=== PATIENT | female | born 1940 | race Caucasian/White ===

== ENCOUNTER 2020-12-13 08:28 | Outpatient (CLI) | payer MEDICARE, SELFPAY ==
--- NOTE | ~2020-12-13 | XR_ITS ---
EXAMINATION: XR barium swallow modified DATE: 12/13/2020 09:29 INDICATION: Dysphagia, unspecified TECHNIQUE: Modified barium esophagram was performed by myself to administered fluoroscopy, in conjun ction with speech pathologist who administered barium in varying consistencies as per speech patholog ist documentation. This was recorded on tape. A single fluoroscopic spot image was recorded. The DAP for this procedure was 1.6 Gycm2. Fluoroscopy exposure time was 2.6 minutes. FINDINGS: Oral stage: Adequate function. Pharyngeal phase: Adequate function. Laryngeal penetration: None. Aspiration: None. Laryngeal sensitivity: Present. Of note, reflux was seen at the lower margin of the visualized upper esophagus at several points thro ughout the examination. IMPRESSION: 1. Unremarkable swallowing function. Please refer to speech pathologist findings and specific feeding recommendations. 2. Esophageal reflux noted at several points during the examination. Consider further evaluation with upper GI. Reviewed, dictated and finalized at location A. IMPRESSION: 1. Unremarkable swallowing function. Please refer to speech pathologist finding s and specific feeding recommendations. 2. Esophageal reflux noted at several points during the examination. Consider f urther evaluation with upper GI.
--- NOTE | 2020-12-13 10:04 | STOPEVAL ---
MODIFIED BARIUM SWALLOW EVALUATION: Thank you for referring Annabelle Gruber to [facility].? Attending Provider: Blas Briscoe MD fAX #: [phone] Referring Provider: Outpatient Past Medical History Past Medical History Source of Past Medical History Patient,Family/Significant Other Prior Level of Function Prior Swallow Level Prior Intake Method Oral Prior Diet Regular (Level 7 Diet) Prior Liquid Consistency Thin (Level 0 Diet) Modified Barium Swallow Evaluation Recent Swallowing History Reports Dysphagia Yes: choking with eating Duration of Dysphagia 4-6 months Other Factors Impacting Dysphagia None History of Pneumonia No Reported Difficult Consistencies Thin Liquids,Solids Intake Method Prior to Swallow Oral Evaluation Diet Prior to Swallow Evaluation Regular, Level 7 Liquid Consistency Prior to Swallow Thin (0) Evaluation Consistency Solid Consistency Method of Presentation Spoon Oral Preparatory Symptoms None Oral Phase Symptoms None Pharyngeal Phase Symptoms Within Functional Limits, Laryngeal Penetration Severity of Vallecular Residue None - 0% No Residue Severity of Pyriform Sinus Residue None - 0% No Residue 8 Point Laryngeal Penetration-Aspiration Material Enters the Airway, Scale Remains Above Vocal Folds, is Ejected Mixed Consistency Method of Presentation Spoon Oral Preparatory Symptoms None Oral Phase Symptoms None Pharyngeal Phase Symptoms None Severity of Vallecular Residue None - 0% No Residue Severity of Pyriform Sinus Residue None - 0% No Residue 8 Point Laryngeal Penetration-Aspiration Material Does Not Enter Airway Scale Cervical/Esophageal Symptoms Esophageal/Pharyngeal Backflow Pureed Consistency Method of Presentation Spoon Oral Preparatory Symptoms None Oral Phase Symptoms None Pharyngeal Phase Symptoms None Severity of Vallecular Residue None - 0% No Residue Severity of Pyriform Sinus Residue None - 0% No Residue 8 Point Laryngeal Penetration-Aspiration Material Does Not Enter Airway Scale Thin Uncontrolled 2 Method of Presentation Straw Oral Preparatory Symptoms None Oral Phase Symptoms None Pharyngeal Phase Symptoms None Severity of Vallecular Residue None - 0% No Residue Severity of Pyriform Sinus Residue None - 0% No Residue 8 Point Laryngeal Penetration-Aspiration Material Does Not Enter Airway Scale Cervical/Esophageal Symptoms Esophageal/Pharyngeal Backflow Thin Uncontrolled 1 Method of Presentation Cup Oral Preparatory Symptoms None Oral Phase Symptoms None Pharyngeal Phase Symptoms None Sever
== END 2020-12-13 08:29 | disposition home or self-care (01) ==
PROVIDERS: PCP Family Medicine; Visit Provider Otolaryngology
DX: R13.10 Dysphagia, unspecified (principal)
CPT/HCPCS: 92611

== ENCOUNTER → 2021-01-15 00:12 | Outpatient (CLI) | payer MEDICARE, SELFPAY ==
[2021-01-15 17:12] LABS: SARS-CoV-2 RNA PCR Negative
== END ==
PROVIDERS: PCP Family Medicine; Visit Provider Internal Medicine Gastroenterology
DX: Z01.812 Encounter for preprocedural laboratory examination (principal); Z20.822 Contact with and (suspected) exposure to COVID-19
CPT/HCPCS: C9803; U0003; U0005

== ENCOUNTER 2021-01-18 01:41 | Day surgery (SDC) | payer MEDICARE, SELFPAY ==
[2021-01-11 13:39] VITALS: BMI 50.7
--- NOTE | 2021-01-18 07:07 | PM.HPGS ---
History of Present Illness History of Present Illness Consent: Risks, benefits, and alternatives have been discussed and questions answered. Patient agrees to proceed with procedure. Chief complaint: dysphagia Narrative: Annabelle Gruber is a 80 year old female with increasing dysphagia. This began a few years ago with intermittent difficulty swallowing solid food. She has learned to chew her food more thoroughly. Lately however even smaller bites or even liquids do not seem to go down. Most the time it feels like things are getting caught in the throat . At times she can expect trait what seems to be caught. She has had larygoscopy and a modified barium swallow which did not reveal any obvious explanation she is on omeprazole. There has been about a 20 lb weight loss Review of Systems Review of Systems: All systems reviewed & are unremarkable except as noted in HPI and below PMFSH Past Medical History Medical History Abdominal pannus Adult BMI 45.0-49.9 kg/sq m Bilateral knee pain Bilateral primary osteoarthritis of knee Chronic congestive heart failure Depression Encounter for screening colonoscopy Essential hypertension Heart murmur Hyperglycemia Hypertension Hypothyroidism Laceration of right thumb Lymphedema Mixed hyperlipidemia Nonrheumatic aortic (valve) stenosis Obesity On warfarin therapy Paroxysmal atrial fibrillation Pulmonary hypertension Tricuspid regurgitation Venous stasis ulcer of right lower extremity Vitamin D deficiency Surgical History Surgical History History of cholecystectomy History of gastric bypass History of gastric stapling Family History Family History Father Diabetes mellitus Hypertension Mother Hypertension Heart disease Cerebrovascular accident Sibling Cancer Other Asthma Hypertension Other Family history of coronary artery disease Social History Social History Smoking status: Never smoker Second hand tobacco smoke exposure: No Alcohol intake: never Substance use: never Substance use type: does not use Living arrangements: alone Spiritual care concerns: No Meds Home Medications and Allergies Home Medications Medication Instructions Recorded Confirmed Type levothyroxine 88 mcg tablet 88 mcg PO DAILY #90 tablet 08/08/20 01/11/21 Rx metoprolol tartrate 100 mg tablet 100 mg PO BID #180 tablet 08/08/20 01/11/21 Rx donepezil 5 mg tablet 5 mg PO QHS 01/01/21 01/11/21 History furosemide 20 mg PO QAM 01/11/21 01/11/21 History potassium chloride 10 meq PO DAILY 01/11/21 01/11/21 History warfarin 4 mg PO QMWF 01/11/21 01/11/21 History warfarin 5 mg PO QTUTHSASU 01/11/21 01/11/21 History digoxin 125 mcg (0.125 mg) tablet 125 mcg PO DAILY #90 tablet 01/15/21 Rx losartan 100 mg tablet 100 mg PO DAILY #90 tablet 01/15/21 Rx Allergies Allergy/AdvReac Type Severity Reaction Status Date / Time alendronate sodium Allergy Unknown unknown Verified 01/18/21 07:11 Exam Const: General: alert Orientation/consciousness: patient oriented x3 Resp: Auscultation: clear to auscultation bilaterally Cardio: Rhythm: regular rhythm GI: GI Palp: Yes Soft to palpation and No Tenderness to palpation present (GI) Neuro: General: patient oriented x3 Assessment and Plan Assessment and plan (1) Dysphagia: Code(s): R13.10 - Dysphagia, unspecified Status: Acute Assessment and Plan: EGD with possible biopsy or dilatation or cautery.
[2021-01-18 07:12] VITALS: BP 175/61; PULSE 68; RESP 20; TEMP 35.9; O2SAT 98
[2021-01-18] MEDS: LACTATED RINGERS 1,000 ML 150 ML IV CONT (07:27)
--- NOTE | 2021-01-18 07:46 | WPDANESEPPF ---
Anes - Initial Pre Proc Eval Procedure: Operation Date: 01/18/21 08:00 Proposed Procedures p Esophagogastroduodenoscopy - Juancarlos Olivares MD Date/Time: 01/18/21 07:46 Surgeon: Juancarlos Olivares MD Pre Op Diagnosis: dysphagia Patient Data Age: 80 Gender: F Height: 1.5 m Weight: 98 kg Last Vital Signs Temp 96.6 F L 01/18/21 07:12 Pulse 68 01/18/21 07:12 Resp 20 01/18/21 07:12 BP 175/61 H 01/18/21 07:12 Pulse Ox 98 01/18/21 07:12 Allergies Allergy/AdvReac Type Severity Reaction Status Date / Time alendronate sodium Allergy Unknown unknown Verified 01/18/21 07:11 Home Medications Medication Instructions Recorded Confirmed Type levothyroxine 88 mcg tablet 88 mcg PO DAILY #90 tablet 08/08/20 01/18/21 Rx metoprolol tartrate 100 mg tablet 100 mg PO BID #180 tablet 08/08/20 01/18/21 Rx donepezil 5 mg tablet 5 mg PO QHS 01/01/21 01/18/21 History furosemide 20 mg PO QAM 01/11/21 01/18/21 History potassium chloride 10 meq PO DAILY 01/11/21 01/18/21 History warfarin 4 mg PO QMWF 01/11/21 01/18/21 History warfarin 5 mg PO QTUTHSASU 01/11/21 01/18/21 History digoxin 125 mcg (0.125 mg) tablet 125 mcg PO DAILY #90 tablet 01/15/21 01/18/21 Rx losartan 100 mg tablet 100 mg PO DAILY #90 tablet 01/15/21 01/18/21 Rx Patient hx anesthesia problems: none Family hx anesthesia problems: none PMFSH Past Medical History Medical History Abdominal pannus Adult BMI 45.0-49.9 kg/sq m Bilateral knee pain Bilateral primary osteoarthritis of knee Chronic congestive heart failure Depression Encounter for screening colonoscopy Essential hypertension Heart murmur Hyperglycemia Hypertension Hypothyroidism Laceration of right thumb Lymphedema Mixed hyperlipidemia Nonrheumatic aortic (valve) stenosis Obesity On warfarin therapy Paroxysmal atrial fibrillation Pulmonary hypertension Tricuspid regurgitation Venous stasis ulcer of right lower extremity Vitamin D deficiency Surgical History Surgical History History of cholecystectomy History of gastric bypass History of gastric stapling Family History Family History Father Diabetes mellitus Hypertension Mother Hypertension Heart disease Cerebrovascular accident Sibling Cancer Other Asthma Hypertension Other Family history of coronary artery disease Social History Social History Smoking status: Never smoker Second hand tobacco smoke exposure: No Alcohol intake: never Substance use: never Substance use type: does not use Living arrangements: alone Spiritual care concerns: No Anes - Eval Final PreProcedure Day of Procedure 01/18/21 07:46 Patient weight: morbidly obese Heart: irregular rhythm and murmur Lungs: clear to auscultation Airway: Mallampati scale class II Neurological: alert and oriented Last oral intake: >/= 8 hours ASA classification: IV Emergent: no Anesthetic plan: proceed Anesthesia type and monitoring: general GIVS and standard monitoring Informed Consent: The patient's anesthetic plan and its attendant risks and benefits were discussed with the patient/family/POA. Questions were solicited and answers provided to the satisfaction of the patient/family/POA.
[2021-01-18 08:11] VITALS: BP 139/53; PULSE 57; RESP 23; O2SAT 96
[2021-01-18 08:21] VITALS: BP 138/60; PULSE 66; RESP 20; O2SAT 96
[2021-01-18 08:31] VITALS: BP 140/62; PULSE 65; RESP 20; O2SAT 96
== END 2021-01-18 08:59 | disposition home or self-care (01) ==
PROVIDERS: PCP Family Medicine; Visit Provider Internal Medicine Gastroenterology
PROC: 0DJ08ZZ Inspection of Upper Intestinal Tract, Via Natural or Artificial Opening Endoscopic (ICD-10-PCS; CPT 43235; principal; 2021-01-18 08:00)
DX: R13.10 Dysphagia, unspecified (principal); K21.9 Gastro-esophageal reflux disease without esophagitis; K29.70 Gastritis, unspecified, without bleeding; Z98.84 Bariatric surgery status; K22.4 Dyskinesia of esophagus; I11.0 Hypertensive heart disease with heart failure; I50.9 Heart failure, unspecified; E03.9 Hypothyroidism, unspecified; E78.2 Mixed hyperlipidemia; I35.0 Nonrheumatic aortic (valve) stenosis; I48.0 Paroxysmal atrial fibrillation; I36.1 Nonrheumatic tricuspid (valve) insufficiency; E55.9 Vitamin D deficiency, unspecified; Z79.01 Long term (current) use of anticoagulants; E66.01 Morbid (severe) obesity due to excess calories; Z68.41 Body mass index [BMI] 40.0-44.9, adult
CPT/HCPCS: 43239; 43450; 87081; 88305; C9803; J2704; J7120; U0003; U0005

== ENCOUNTER → 2022-06-07 10:26 | Outpatient (CLI) | payer MEDICARE, SELFPAY ==
--- NOTE | ~2022-06-07 | XR_ITS ---
XR foot LT min 3V 06/07/2022 10:52 Indication: Left foot pain Procedure: 4 views left foot Comparison: No prior studies for comparison. Findings: Osteopenia. There is atherosclerosis of the foot. Lisfranc Joint intact. There is moderate polyarticular osteoarthritis. No erosive changes. There is a possible nondisplaced fracture of the f ifth proximal phalanx on the oblique image. Prominent degenerative calcaneal enthesophytes. No focal soft tissue abnormality. No foreign bodies. Impression: 1: Possible nondisplaced fracture left fifth proximal phalanx distally seen on oblique image only. Co rrelate for point tenderness. 2: Polyarticular osteoarthritis. Reviewed, dictated and finalized at location B. [employer] Impression: 1: Possible nondisplaced fracture left fifth proximal phalanx distally seen on oblique image only. Correlate for point tenderness. 2: Polyarticular osteoarthritis.
== END ==
PROVIDERS: PCP Family Medicine; Visit Provider Family Medicine
DX: M19.072 Primary osteoarthritis, left ankle and foot (principal)
CPT/HCPCS: 73630

== ENCOUNTER 2023-05-06 11:18 | Observation (INO) | payer MEDICARE, SELFPAY ==
--- NOTE | ~2023-05-06 | XR_ITS ---
EXAMINATION: XR hand LT min 3V DATE: 05/06/2023 18:22 INDICATION: Left hand injury. Fall. TECHNIQUE: 3 views of left hand were obtained. COMPARISON: None. FINDINGS: Bone alignment is normal. No fracture. There is mild osteoarthritis of triscaphe joint and severe osteoarthritis of first carpometacarpal joint. There is moderate osteoarthritis of second meta carpophalangeal joint. There is mild osteoarthrosis of many of the interphalangeal joints and metacar pophalangeal joints. There is severe osteoarthritis of second-fifth distal interphalangeal joints and moderate osteoarthritis of third proximal interphalangeal joint. IMPRESSION: 1. No fracture. 2. Polyarticular osteoarthritis. Reviewed, dictated and finalized at location E.
--- NOTE | ~2023-05-06 | CT_ITS ---
EXAMINATION: CT brain wo con DATE: 05/06/2023 18:13 INDICATION: Weakness. Falls. Confusion. TECHNIQUE: Computed tomography (CT) of the head was performed without intravenous contrast. The mA wa s adjusted according to patient size. Iterative reconstruction technique was employed. The dose-lengt h product was 605.33 mGy-cm. COMPARISON: None FINDINGS: There is an old infarct in the right basal ganglia. There are scattered areas of low attenu ation in the cerebral white matter. There is no intracranial hemorrhage, acute infarction, or abnorma l intracranial mass lesion. The ventricles are normal in size. The orbits are normal. There is a trac e right mastoid effusion. There is mild mucosal thickening in the ethmoid sinuses. IMPRESSION: 1. Old infarct in the right basal ganglia. 2. Moderate nonspecific cerebral white matter disease, which likely represents chronic small vessel i schemic disease. Reviewed, dictated and finalized at location E. IMPRESSION: 1. Old infarct in the right basal ganglia. 2. Moderate nonspecific cerebral white matter disease, which likely represents chronic small vessel ischemic disease.
--- NOTE | ~2023-05-06 | CT_ITS ---
EXAMINATION: CT abdomen pelvis w con DATE: 05/06/2023 18:15 INDICATION: Left lower quadrant abdominal tenderness and suprapubic tenderness. TECHNIQUE: Computed tomography (CT) of the abdomen and pelvis was performed with 100 mL Omnipaque 350 intravenous contrast. Automated exposure control and iterative reconstruction technique were employe d. The dose-length product was 746.62 mGy-cm. COMPARISON: None. FINDINGS: The visualized portions of the lung bases demonstrate mild atelectasis. No pleural effusion . Cardiomegaly is noted. There are coronary artery calcifications. There are calcifications of the ao rtic valve. There is a trace pericardial effusion. There is material in the esophagus, which may be f rom reflux or dysmotility. There are surgical changes of the stomach. The liver and spleen are normal . There are changes of cholecystectomy. The pancreas and adrenal glands are normal. There are cysts i n right kidney measuring up to 7 mm. Left kidney is normal. There is a left inguinal hernia containin g fat. There are no dilated loops of bowel. There is calcified atherosclerosis of the aorta and many of the other arteries. There are no pathologically enlarged lymph nodes. The endometrial complex is t hickened to 8 mm. There is no free intraperitoneal fluid. There is severe lumbar spondylosis. IMPRESSION: 1. Left inguinal hernia containing fat. 2. Thickened endometrial complex. The differential diagnosis includes endometrial hyperplasia, polyp, and carcinoma. Biopsy is recommended. Reviewed, dictated and finalized at location E. IMPRESSION: 1. Left inguinal hernia containing fat. 2. Thickened endometrial complex. The differential diagnosis includes endometri al hyperplasia, polyp, and carcinoma. Biopsy is recommended.
--- NOTE | ~2023-05-06 | XR_ITS ---
EXAMINATION: XR forearm LT 2V DATE: 05/06/2023 18:22 INDICATION: Left forearm injury. Fall. TECHNIQUE: 2 views of left forearm were obtained. COMPARISON: None. FINDINGS: Bone alignment is normal. No fracture. There is mild osteoarthritis of triscaphe joint and severe osteoarthritis of first carpometacarpal joint. No elbow joint effusion. IMPRESSION: 1. No fracture. Reviewed, dictated and finalized at location E. IMPRESSION: 1. No fracture.
--- NOTE | ~2023-05-06 | CT_ITS ---
EXAMINATION: CT cervical spine wo con DATE: 05/06/2023 18:13 INDICATION: Weakness. Falls. TECHNIQUE: Computed tomography (CT) of the cervical spine was performed without intravenous contrast. Automated exposure control and iterative reconstruction technique were employed. The dose-length pro duct was 123.86 mGy-cm. COMPARISON: None FINDINGS: Bone alignment is normal. Vertebral body heights are normal. There is mildly decreased disc height from C2-C3 through C4-C5 and severely decreased disc height at C5-C6 and C6-C7. The following disc levels are specifically discussed: C2-C3: There is no uncovertebral joint osteoarthritis. There is mild right facet joint osteoarthritis . There is ankylosis of left facet joint with mild hypertrophy. There is no neural foraminal stenosis . There is no central canal stenosis. C3-C4: There is no uncovertebral joint osteoarthritis. There is severe bilateral facet joint osteoart hritis. There is no neural foraminal stenosis. There is mild central canal stenosis. C4-C5: There is mild bilateral uncovertebral joint osteoarthritis. There is severe right and mild lef t facet joint osteoarthritis. There is mild right neural foraminal stenosis. There is mild central ca nal stenosis. C5-C6: There is moderate bilateral uncovertebral joint osteoarthritis. There is severe bilateral face t joint osteoarthritis. There is mild bilateral neural foraminal stenosis. There is mild central lona l stenosis. C6-C7: There is mild bilateral uncovertebral joint osteoarthritis. There is moderate bilateral facet joint osteoarthritis. There is no neural foraminal stenosis. There is mild central canal stenosis. C7-T1: There is no uncovertebral joint osteoarthritis. There is severe bilateral facet joint osteoart hritis. There is mild bilateral neural foraminal stenosis. There is no central canal stenosis. IMPRESSION: 1. No fracture. 2. Severe cervical spondylosis. Reviewed, dictated and finalized at location E.
--- NOTE | ~2023-05-06 | XR_ITS ---
Clinical Indication: Weakness AP and lateral views of the chest: Comparison: 07/06/2017 Findings: The lungs are clear, without evidence of focal consolidation or pleural effusion. Cardiome diastinal silhouette is stable. Relative kyphosis is unchanged. Impression: Clear lungs. Stable cardiomegaly. Kyphosis. Reviewed, dictated and finalized at location . Impression: Clear lungs. Stable cardiomegaly. Kyphosis.
[2023-05-06 11:32] VITALS: BP 158/70; PULSE 68; RESP 16; TEMP 36.3; O2SAT 100
--- NOTE | 2023-05-06 11:34 | ECG_ITS ---
Measurements Intervals [place] Rate: 104 P: [place]: 0 QRS: 10 QRSD: 80 T: 1 QT: 333 QTc: 439 Interpretive Statements ATRIAL FIBRILLATION WITH RAPID VENTRICULAR RESPONSE BASELINE ARTIFACT MINIMAL ST DEPRESSION [0.025+ mV ST DEPRESSION] ABNORMAL ECG NO PREVIOUS ECG AVAILABLE FOR COMPARISON Electronically Signed On 05-06-2023 18:31:03 CDT by Vishnu Ruffin M.D.
[2023-05-06 11:53] LABS: Basophils Percent Auto 0.3 % (0.2-1.2); Eosinophils Absolute Auto 0.1 K/mm3 (0-0.3); Eosinophils Percent Auto 1.1 % (0-4.4); Hematocrit 39.5 % (37.0-47.0); Hemoglobin 12.9 g/dL (12.0-15.0); Immature Granulocyte Absolute 0.01 K/mm3 (0.00-0.031); Immature Granulocyte Percent A 0.2 % (0-0.5); Lymphocytes Absolute Auto 1.18 K/mm3 (0.9-3.2); Lymphocytes Percent Auto 17.7 % (18.3-44.2); Mean Corpuscular HGB Conc 32.7 g/dl (32-36); Mean Corpuscular Hemoglobin 33.7 pg (26-34); Mean Corpuscular Volume 103.1 fl (80-100); Monocytes Absolute Auto 0.9 K/mm3 (0.1-0.6); Monocytes Percent Auto 12.9 % (2.6-8.5); Neutrophils Absolute Auto 4.5 K/mm3 (1.3-6.7); Neutrophils Percent Auto 67.8 % (45.5-73.1); Platelet Count Result 192 k/mm3 (150-375); Red Blood Count 3.83 M/mm3 (4.2-5.4); Red Cell Distribution Width 12.8 % (11.5-14.5); White Blood Count 6.7 K/mm3 (4.5-10.0)
[2023-05-06 12:02] LABS: Alanine Aminotransferase 19 U/L (6-35); Albumin Level 4.1 g/dL (3.5-5.1); Alkaline Phosphatase 57 U/L (38-126); Anion Gap 7 mmol/L (8-16); Aspartate Amino Transferase 35 U/L (14-36); Bilirubin,Total 1.8 mg/dL (0.2-1.3); Blood Urea Nitrogen 18 mg/dL (7-17); Calcium 9.3 mg/dL (8.4-10.2); Carbon Dioxide 25 mmol/L (22-30); Chloride 105 mmol/L (98-107); Estimated CRCL calculation 68 ml/min; Estimated Glomerular Filt Rate > 60; Glucose 85 mg/dL (65-110); Potassium 3.6 mmol/L (3.4-5.0); Sodium 137 mmol/L (137-145)
--- NOTE | 2023-05-06 16:30 | ED.WEAKNESS ---
HPI - Weakness General Chief complaint: Weakness Stated complaint: falls x2, confused, SOB Time Seen by Provider: 05/06/23 15:36 History of Present Illness HPI Narrative: Patient is an 82-year-old female with a history of dementia, CHF, hypothyroidism, hypertension presenting after multiple falls. Patient's daughters are at bedside and assists with the history. Patient lives at home alone. She was found on the floor 2 days ago by her daughter. Unclear how long she had been down or the cause of her fall. Patient then had another fall yesterday. She was found right by her recliner and she was unable to get up. Family states that she often struggles to get herself up but is usually able to do so on her own. They are concerned because she is so weak. Concerned that she may have a UTI. Patient currently denies complaints. Related Data Allergies Allergy/AdvReac Type Severity Reaction Status Date / Time alendronate sodium Allergy Unknown unknown Verified 06/06/22 08:55 Review of Systems Review of Systems: All systems reviewed & are unremarkable except as noted in HPI and below PMFSH Past Medical History Medical History Abdominal pannus Adult BMI 45.0-49.9 kg/sq m Bilateral knee pain Bilateral primary osteoarthritis of knee Body mass index (BMI) of 30 to 39 in adult Chronic congestive heart failure Chronic renal insufficiency, stage III (moderate) Dementia Depression Encounter for immunization Encounter for screening colonoscopy Essential hypertension Heart murmur Hyperglycemia Hypertension Hypothyroidism Laceration of right thumb Lymphedema Mixed hyperlipidemia Nonrheumatic aortic (valve) stenosis Obesity On warfarin therapy Paroxysmal atrial fibrillation Pulmonary hypertension Thrombocytopenia Tricuspid regurgitation Venous stasis ulcer of right lower extremity Vitamin D deficiency Surgical History Surgical History History of cholecystectomy History of gastric bypass History of gastric stapling Family History Family History Father Diabetes mellitus Hypertension Mother Hypertension Heart disease Cerebrovascular accident Sibling Cancer Other Asthma Hypertension Other Family history of coronary artery disease Social History Social History Smoking status: Never smoker Second hand tobacco smoke exposure: No Alcohol intake: never Substance use: never Substance use type: does not use Lack of Transportation: No Lack of Food: Never True Current Housing: I Have Housing Concerned About Future Housing: No Difficulty Paying Gas/Electric Bills: No Difficulty Paying for Meds: No Currently Unemployed: No Education: Grade School Difficulty w/ Childcare or Family Care: No Living arrangements: with family Gender identity (if verbalized by the patient): Female Spiritual care concerns: No Agree to blood products: Yes Exam Narrative: GENERAL: Chronically ill-appearing, nontoxic, no acute distress HEAD: Normocephalic, atraumatic. EYES: PERRLA and EOMI. ENT: Mucous membranes tacky NECK: Supple. CHEST: Clear to auscultation. No respiratory distress. HEART: Regular rate and rhythm ABDOMEN: Soft, tender in left lower quadrant and suprapubic region, no guarding or rebound EXTREMITIES: Normal range of motion. Trace pitting edema bilateral lower extremities SKIN: Warm, dry, skin tear to left forearm with dressing in place NEURO: At baseline PSYCH: Normal mood and affect. Course Vital Signs Vital signs: Vital Signs Temperature 97.3 F L 05/06/23 11:32 Pulse Rate 68 05/06/23 11:32 Respiratory Rate 16 05/06/23 11:32 Blood Pressure 158/70 H 05/06/23 11:32 Pulse Oximetry 100 05/06/23 11:32 Oxygen Delivery Room Air 1
[2023-05-06 16:44] LABS: Appearance Urine Cloudy (Clear); Bacteria Urine 1+ /hpf; Bilirubin Urine 2+ (Negative); Blood Urine Negative (Negative); Color Urine Dark Yellow (Yellow); Glucose Urine UA Negative (Negative); Ketones Urine 2+ mg/dL (Negative); Leukocyte Esterase Ur Trace LEU/UL (Negative); Need Manual Microscopic Reviewed; Nitrate Urine Negative (Negative); Non Pathogenic Casts 0-2; Protein Urine Trace mg/dL (Negative); Specific Grav Ur 1.034 (1.001-1.035); Squamous Epithelial Cell Urine Moderate /hpf (Few); WBC Urine 0-5 /hpf
[2023-05-06 16:58] LABS: Add Urine Microscopic? YES
[2023-05-06] MEDS: SODIUM CHLORIDE 0.9% IV 1,000 ML 999 ML IV CONT (17:23)
[2023-05-06 17:35] LABS: INR 1.1; Prothrombin Time 14.2 Seconds (11.1-14.7)
[2023-05-06 17:36] LABS: Partial Thromboplastin Time 33.1 SECONDS (22.3-36.8)
[2023-05-06 17:37] LABS: Creatine Kinase 147 U/L (30-135); Lipase 52 U/L (23-300); Magnesium 1.7 mg/dL (1.6-2.3)
[2023-05-06 17:49] LABS: NT Pro B Type Natriuretic Pept 1490 pg/mL (19.9-100); Troponin I 0.022 ng/mL (0.000-0.034)
[2023-05-06 18:34] LABS: Influenza A QL RT-PCR Negative (Negative); Influenza B QL RT-PCR Negative (Negative); SARS-CoV-2 RNA PCR Negative (Negative)
[2023-05-06 19:24] VITALS: PULSE 108
[2023-05-06 19:25] VITALS: BP 167/100; PULSE 113; RESP 19; TEMP 36.6; O2SAT 99
[2023-05-06 21:00] VITALS: BP 128/70; PULSE 56; RESP 14; TEMP 36.4; O2SAT 99
[2023-05-06 21:04] LABS: Troponin I 0.026 ng/mL (0.000-0.034)
[2023-05-06 22:00] VITALS: BP 125/52; PULSE 53; RESP 18; TEMP 36.2; O2SAT 100
--- NOTE | 2023-05-06 22:13 | ADMGEN ---
This patient, Annabelle Gruber, was admitted to [facility] Surg Room 306-01. Patient/family oriented to hospital policies and general routines including ID bracelet, bed and alarms, visiting hours, pain management, procedures, bathroom and other care routines, personal items, smoking policy, room service/diet, and visiting hours. Information on how to activate the Rapid Response Team has been discussed. Patient/Family are encouraged to report perceived risks to care and to ask questions if they do not understand what they are told or what they should do.
--- NOTE | 2023-05-06 22:13 | PC.NURSE ---
Noreen, pt's daughter, was called by this RN to do confirm patients home medications. Noreen was able to confirm home medications with recently updated list that she had but was unaware of last time medications were taken by patient.
[2023-05-06] MEDS: cefTRIAXone 2 GM/NS 100 ML 2 GM/100 ML BAG IVPB (22:44)
[2023-05-06 23:17] VITALS: BMI 30.8
[2023-05-06 23:19] LABS: Troponin I 0.032 ng/mL (0.000-0.034)
--- NOTE | 2023-05-06 23:24 | PM.IMHP ---
H&P: HPI History of Present Illness Date/Time: 05/06/23 23:24 Chief Complaint: Weakness Narrative: THIS IS AN 82-YEAR-OLD FEMALE WITH PAST MEDICAL HISTORY SIGNIFICANT FOR CONGESTIVE HEART FAILURE, CHRONIC KIDNEY DISEASE, HYPERTENSION, AORTIC STENOSIS, PAROXYSMAL ATRIAL FIBRILLATION, RATE CONTROLLED. PATIENT WAS HAVING RECURRENT FALLS AT HOME HAD 3 FALLS IN THE LAST FEW DAYS OR SO WAS FOUND DOWN BY DAUGHTER UNKNOWN HOW LONG PATIENT HAD BEEN THERE PATIENT USUALLY LIVES BY HERSELF. WAS BROUGHT TO THE EMERGENCY ROOM FOR EVALUATION. PATIENT STATES THAT SHE HAS BEEN FEELING VERY WEAK DENIES ANY NAUSEA VOMITING ABDOMINAL PAIN, DIARRHEA, FEVERS, RIGORS, CHILLS. PRELIMINARY WORKUP WAS SIGNIFICANT FOR URINALYSIS WITH NUMEROUS WBCS PRESENT. EXAMINATION: CT brain wo con DATE: 05/06/2023 18:13 INDICATION: Weakness. Falls. Confusion. TECHNIQUE: Computed tomography (CT) of the head was performed without intravenous contrast. The mA was adjusted according to patient size. Iterative reconstruction technique was employed. The dose-length product was 605.33 mGy-cm. COMPARISON: None FINDINGS: There is an old infarct in the right basal ganglia. There are scattered areas of low attenuation in the cerebral white matter. There is no intracranial hemorrhage, acute infarction, or abnormal intracranial mass lesion. The ventricles are normal in size. The orbits are normal. There is a trace right mastoid effusion. There is mild mucosal thickening in the ethmoid sinuses. IMPRESSION: 1. Old infarct in the right basal ganglia. 2. Moderate nonspecific cerebral white matter disease, which likely represents chronic small vessel ischemic disease. EXAMINATION: CT abdomen pelvis w con DATE: 05/06/2023 18:15 INDICATION: Left lower quadrant abdominal tenderness and suprapubic tenderness. TECHNIQUE: Computed tomography (CT) of the abdomen and pelvis was performed with 100 mL Omnipaque 350 intravenous contrast. Automated exposure control and iterative reconstruction technique were employed. The dose-length product was 746.62 mGy-cm. COMPARISON: None. FINDINGS: The visualized portions of the lung bases demonstrate mild atelectasis. No pleural effusion. Cardiomegaly is noted. There are coronary artery calcifications. There are calcifications of the aortic valve. There is a trace pericardial effusion. There is material in the esophagus, which may be from reflux or dysmotility. There are surgical changes of the stomach. The liver and spleen are normal. There are changes of cholecystectomy. The pancreas and adrenal glands are normal. There are cysts in right kidney measuring up to 7 mm. Left kidney is normal. There is a left inguinal hernia containing fat. There are no dilated loops of bowel. There is calcified atherosclerosis of the aorta and many of the other arteries. There are no pathologically enlarged lymph nodes. The endometrial complex is thickened to 8 mm. There is no free intraperitoneal fluid. There is severe lumbar spondylosis. IMPRESSION: 1. Left inguinal hernia containing fat. 2. Thickened endometrial complex. The differential diagnosis includes endometrial hyperplasia, polyp, and carcinoma. Biopsy is recommended. Review of Systems Review of Systems: FALLS, WEAKNESS Constitutional: Constitutional: Denies chills, Denies fatigue, Denies fever(s), Denies malaise, Denies night sweats, Reports poor appetite and Reports weakness Eyes: Eyes: Denies change in vision ENT: Denies dysphagia and Denies odynophagia Cardiovascular: Cardiovascular: Denies chest pain, Denies radiating jaw, neck or arm pain and Denies palpitations Respiratory: Respiratory: Denies cough, Denies excessive phlegm production and Denies dyspnea Gastrointestinal: Gastrointestinal: Denies abdominal pain, Denies dyspepsia, Denies heartburn, Denies diarrhea, Denies nausea and Denies vomiting Genitourinary: Genitourinary: Denies dysuria and Denies flank pain Musculoskeletal: Mu
[2023-05-07] VITALS (11 sets, daily range): BP systolic 103–125; BP diastolic 46–69; PULSE 69–106; RESP 12–16; TEMP 36.2–36.7; O2SAT 97–100
[2023-05-07] MEDS: LEVOTHYROXINE SODIUM 88 MCG TABLET PO (06:30)
[2023-05-07] MEDS: METOPROLOL TARTRATE 50 MG TAB 100 MG PO ×2 (08:42→20:19)
[2023-05-07] MEDS: DIGOXIN TAB 125 MCG TABLET PO (08:42)
[2023-05-07] MEDS: LOSARTAN POTASSIUM 100 MG TABLET PO (08:42)
--- NOTE | 2023-05-07 10:42 | PM.IMPN ---
Progress Note: A&P Assessment and Plan (1) UTI (urinary tract infection): Code(s): N39.0 - Urinary tract infection, site not specified Status: Acute Assessment and Plan: ADMIT TO REGULAR MEDICAL STARTED ON ROCEPHIN AWAITING CULTURES (2) Weakness generalized: Code(s): R53.1 - Weakness Status: Acute Assessment and Plan: LIKELY SECONDARY TO 1. PT OT WHEN CLINICALLY ABLE TO PARTICIPATE (3) Fall: Code(s): W19.XXXA - Unspecified fall, initial encounter Status: Acute Assessment and Plan: FALL PRECAUTIONS (4) Afib: Code(s): I48.91 - Unspecified atrial fibrillation Status: Acute Assessment and Plan: RATE CONTROLLED (5) Chronic renal insufficiency, stage III (moderate): Code(s): N18.30 - Chronic kidney disease, stage 3 unspecified Status: Acute Assessment and Plan: CONTINUE TO MONITOR BUN AND CREATININE (6) Tricuspid regurgitation: Code(s): I07.1 - Rheumatic tricuspid insufficiency Status: Acute Assessment and Plan: UNCHANGED (7) Paroxysmal atrial fibrillation: Code(s): I48.0 - Paroxysmal atrial fibrillation Status: Acute Assessment and Plan: RATE CONTROLLED (8) Nonrheumatic aortic (valve) stenosis: Code(s): I35.0 - Nonrheumatic aortic (valve) stenosis Status: Acute Assessment and Plan: UNCHANGED Subjective Date/time seen: 05/07/23 10:42 Interval history: still having weakness, no new complaints Exam Narrative: PATIENT LAYING IN BED Const: General: comfortable, no acute distress, well developed, alert, awake, ill appearing acutely, tired appearing and average body habitus Nutritional Appearance: average body habitus Orientation/consciousness: patient oriented x3 HENMT: Head: normal to inspection, normocephalic and atraumatic Ears: hearing grossly normal bilaterally Face/Nose/Sinus: normal facial exam Face and sinus: normal facial exam Eyes: General: appearance normal, both eyes and all related structures Pupils: Equal, round and reactive pupils present EOM: EOMs intact bilaterally Neck: Neck: full ROM, no lymphadenopathy and no JVD Thyroid: thyroid normal Lymphatic: no lymphadenopathy noted Resp: Effort & Inspection: normal respiratory effort and able to speak in complete sentences Auscultation: clear to auscultation bilaterally Cardio: Jugular venous distension: no JVD Rate: regular rate Rhythm: regular rhythm Heart sounds: S1 normal heart sound present and S2 normal heart sound present : General: Yes deferred Skin: Rashes: no rashes Wounds: no wounds Neuro: General: patient oriented x3, CN's II-XI intact bilaterally and Unable to assess gait Cranial nerves: Yes CN's II-XII intact bilaterally and Yes Equal, round and reactive pupils present Cognition (Neuro): normal cognition Speech: normal speech Gait exam (Neuro): Unable to assess gait Motor exam (neuro): 5/5 motor strength present throughout Sensory Exam: No Sensory deficit (Neuro) Extrem: General: normal to inspection, full ROM, no joint enlargement and no pedal edema Objective Data Vital Signs Vital Signs: Vital Signs - 24 hr 05/06/23 11:32 05/06/23 19:24 05/06/23 19:25 Temperature 97.3 F L 98 F Pulse Rate 68 108 H 113 H Respiratory Rate 16 19 Blood Pressure 158/70 H 167/100 H Pulse Oximetry 100 99 Oxygen Delivery Room Air 05/06/23 22:00 05/06/23 21:00 05/07/23 00:00 Temperature 97.1 F L 97.6 F Pulse Rate 53 L 56 L 81 Respiratory Rate 18 14 Blood Pressure 125/52 L 128/70 Pulse Oximetry 100 99 Oxygen Delivery 05/07/23 04:00 05/07/23 06:00 05/07/23 08:42 Temperature 97.1 F L Pulse Rate 77 90 79 Respiratory Rate 16 Blood Pressure 115/69 Pulse Oximetry 100 Oxygen Delivery 05/07/23 08:42 05/07/23 08:00 Temperature Pulse Rate 79 106 H Respiratory Rate Blood Pressure Pulse Oximetry Oxygen Delivery Intake/Out
[2023-05-07] MEDS: RIVAROXABAN 20 MG TABLET PO (16:35)
[2023-05-07] MEDS: DONEPEZIL HCL 10 MG TABLET PO (20:20)
[2023-05-07] MEDS: cefTRIAXone 2 GM/NS 100 ML 2 GM/100 ML BAG IVPB (22:59)
[2023-05-08] VITALS (12 sets, daily range): BP systolic 118–158; BP diastolic 42–87; PULSE 51–93; RESP 14–20; TEMP 36.4–37.8; O2SAT 98–100
[2023-05-08] MEDS: LEVOTHYROXINE SODIUM 88 MCG TABLET PO (06:28)
[2023-05-08] MEDS: DIGOXIN TAB 125 MCG TABLET PO (08:11)
[2023-05-08] MEDS: LOSARTAN POTASSIUM 100 MG TABLET PO (08:11)
[2023-05-08] MEDS: METOPROLOL TARTRATE 50 MG TAB 100 MG PO ×2 (08:11→20:17)
--- NOTE | 2023-05-08 11:40 | PM.IMPN ---
Progress Note: A&P Assessment and Plan (1) UTI (urinary tract infection): Code(s): N39.0 - Urinary tract infection, site not specified Status: Acute Assessment and Plan: ADMIT TO REGULAR MEDICAL STARTED ON ROCEPHIN AWAITING CULTURES (2) Weakness generalized: Code(s): R53.1 - Weakness Status: Acute Assessment and Plan: LIKELY SECONDARY TO 1. PT OT WHEN CLINICALLY ABLE TO PARTICIPATE (3) Fall: Code(s): W19.XXXA - Unspecified fall, initial encounter Status: Acute Assessment and Plan: FALL PRECAUTIONS (4) Afib: Code(s): I48.91 - Unspecified atrial fibrillation Status: Acute Assessment and Plan: RATE CONTROLLED (5) Chronic renal insufficiency, stage III (moderate): Code(s): N18.30 - Chronic kidney disease, stage 3 unspecified Status: Acute Assessment and Plan: CONTINUE TO MONITOR BUN AND CREATININE (6) Tricuspid regurgitation: Code(s): I07.1 - Rheumatic tricuspid insufficiency Status: Acute Assessment and Plan: UNCHANGED (7) Paroxysmal atrial fibrillation: Code(s): I48.0 - Paroxysmal atrial fibrillation Status: Acute Assessment and Plan: RATE CONTROLLED (8) Nonrheumatic aortic (valve) stenosis: Code(s): I35.0 - Nonrheumatic aortic (valve) stenosis Status: Acute Assessment and Plan: UNCHANGED Subjective Date/time seen: 05/08/23 11:40 Interval history: no new complaints Exam Narrative: PATIENT LAYING IN BED Const: General: comfortable, no acute distress, well developed, alert, awake, ill appearing acutely, tired appearing and average body habitus Nutritional Appearance: average body habitus Orientation/consciousness: patient oriented x3 HENMT: Head: normal to inspection, normocephalic and atraumatic Ears: hearing grossly normal bilaterally Face/Nose/Sinus: normal facial exam Face and sinus: normal facial exam Eyes: General: appearance normal, both eyes and all related structures Pupils: Equal, round and reactive pupils present EOM: EOMs intact bilaterally Neck: Neck: full ROM, no lymphadenopathy and no JVD Thyroid: thyroid normal Lymphatic: no lymphadenopathy noted Resp: Effort & Inspection: normal respiratory effort and able to speak in complete sentences Auscultation: clear to auscultation bilaterally Cardio: Jugular venous distension: no JVD Rate: regular rate Rhythm: regular rhythm Heart sounds: S1 normal heart sound present and S2 normal heart sound present : General: Yes deferred Skin: Rashes: no rashes Wounds: no wounds Neuro: General: patient oriented x3, CN's II-XI intact bilaterally and Unable to assess gait Cranial nerves: Yes CN's II-XII intact bilaterally and Yes Equal, round and reactive pupils present Cognition (Neuro): normal cognition Speech: normal speech Gait exam (Neuro): Unable to assess gait Motor exam (neuro): 5/5 motor strength present throughout Sensory Exam: No Sensory deficit (Neuro) Extrem: General: normal to inspection, full ROM, no joint enlargement and no pedal edema Objective Data Vital Signs Vital Signs: Vital Signs - 24 hr 05/07/23 12:00 05/07/23 14:00 05/07/23 15:47 Temperature 98.0 F Pulse Rate 70 71 Respiratory Rate 14 Blood Pressure 103/46 L Pulse Oximetry 97 Oxygen Delivery Room Air 05/07/23 16:00 05/07/23 20:19 05/07/23 21:36 Temperature 98.0 F Pulse Rate 69 90 91 Respiratory Rate 12 Blood Pressure 125/49 L Pulse Oximetry 100 Oxygen Delivery 05/07/23 20:00 05/08/23 00:00 05/08/23 05:11 Temperature 98.1 F Pulse Rate 97 63 88 Respiratory Rate 14 Blood Pressure 118/42 L Pulse Oximetry 98 Oxygen Delivery 05/08/23 04:00 05/08/23 08:11 05/08/23 08:11 Temperature Pulse Rate 66 68 68 Respiratory Rate Blood Pressure Pulse Oximetry Oxygen Delivery 05/08/23 08:10 05/08/23 08:10 05/08/23 08:00 Temperature
[2023-05-08 14:30] LABS: Anion Gap 8 mmol/L (8-16); Blood Urea Nitrogen 17 mg/dL (7-17); Calcium 8.9 mg/dL (8.4-10.2); Carbon Dioxide 25 mmol/L (22-30); Chloride 104 mmol/L (98-107); Estimated CRCL calculation 56 ml/min; Estimated Glomerular Filt Rate > 60; Glucose 114 mg/dL (65-110); Magnesium 1.7 mg/dL (1.6-2.3); Phosphorus 3.2 mg/dL (2.5-4.5); Potassium 3.4 mmol/L (3.4-5.0); Sodium 137 mmol/L (137-145)
[2023-05-08] MEDS: RIVAROXABAN 20 MG TABLET PO (16:46)
[2023-05-08] MEDS: DONEPEZIL HCL 10 MG TABLET PO (20:17)
[2023-05-08] MEDS: cefTRIAXone 2 GM/NS 100 ML 2 GM/100 ML BAG IVPB (20:18)
[2023-05-09] VITALS: PULSE 65
[2023-05-09 04:00] VITALS: PULSE 67
[2023-05-09] MEDS: LEVOTHYROXINE SODIUM 88 MCG TABLET PO (05:15)
[2023-05-09 05:52] VITALS: BP 131/59; PULSE 85; RESP 18; TEMP 36.5; O2SAT 98
[2023-05-09 08:00] VITALS: PULSE 85; RESP 18; O2SAT 98
[2023-05-09] MEDS: METOPROLOL TARTRATE 50 MG TAB 100 MG PO (09:00)
[2023-05-09] MEDS: DIGOXIN TAB 125 MCG TABLET PO (09:00)
[2023-05-09] MEDS: LOSARTAN POTASSIUM 100 MG TABLET PO (09:00)
--- NOTE | 2023-05-09 12:39 | PM.DS ---
DS: Admitting Diagnosis Discharge Date May 09, 2023 Admitting Diagnosis UTI, weakness DS: Discharge Diagnosis Discharge Diagnosis (1) UTI (urinary tract infection): Code(s): N39.0 - Urinary tract infection, site not specified Status: Acute Assessment and Plan: ADMIT TO REGULAR MEDICAL STARTED ON ROCE[place]IN AWAITING CULTURES (2) Weakness generalized: Code(s): R53.1 - Weakness Status: Acute Assessment and Plan: LIKELY SECONDARY TO 1. PT OT WHEN CLINICALLY ABLE TO PARTICIPATE (3) Fall: Code(s): W19.XXXA - Unspecified fall, initial encounter Status: Acute Assessment and Plan: FALL PRECAUTIONS (4) Afib: Code(s): I48.91 - Unspecified atrial fibrillation Status: Acute Assessment and Plan: RATE CONTROLLED (5) Chronic renal insufficiency, stage III (moderate): Code(s): N18.30 - Chronic kidney disease, stage 3 unspecified Status: Acute Assessment and Plan: CONTINUE TO MONITOR BUN AND CREATININE (6) Tricuspid regurgitation: Code(s): I07.1 - Rheumatic tricuspid insufficiency Status: Acute Assessment and Plan: UNCHANGED (7) Paroxysmal atrial fibrillation: Code(s): I48.0 - Paroxysmal atrial fibrillation Status: Acute Assessment and Plan: RATE CONTROLLED (8) Nonrheumatic aortic (valve) stenosis: Code(s): I35.0 - Nonrheumatic aortic (valve) stenosis Status: Acute Assessment and Plan: UNCHANGED DS: Summary Hospital Course Hospital Course: Patient is an 82-year-old female admitted for weakness. Treated for UTI. Antibiotics on discharge. Patient has refused placement in [facility] facility. Time Spent with Patient Time attestation: Total time spent providing and/or coordinating discharge services: Exam Narrative: PATIENT LAYING IN BED Const: General: comfortable, no acute distress, well developed, alert, awake, ill appearing acutely, tired appearing and average body habitus Nutritional Appearance: average body habitus Orientation/consciousness: patient oriented x3 HENMT: Head: normal to inspection, normocephalic and atraumatic Ears: hearing grossly normal bilaterally Face/Nose/Sinus: normal facial exam Face and sinus: normal facial exam Eyes: General: appearance normal, both eyes and all related structures Pupils: Equal, round and reactive pupils present EOM: EOMs intact bilaterally Neck: Neck: full ROM, no lymphadenopathy and no JVD Thyroid: thyroid normal Lymphatic: no lymphadenopathy noted Resp: Effort & Inspection: normal respiratory effort and able to speak in complete sentences Auscultation: clear to auscultation bilaterally Cardio: Jugular venous distension: no JVD Rate: regular rate Rhythm: regular rhythm Heart sounds: S1 normal heart sound present and S2 normal heart sound present : General: Yes deferred Skin: Rashes: no rashes Wounds: no wounds Neuro: General: patient oriented x3, CN's II-XI intact bilaterally and Unable to assess gait Cranial nerves: Yes CN's II-XII intact bilaterally and Yes Equal, round and reactive pupils present Cognition (Neuro): normal cognition Speech: normal speech Gait exam (Neuro): Unable to assess gait Motor exam (neuro): 5/5 motor strength present throughout Sensory Exam: No Sensory deficit (Neuro) Extrem: General: normal to inspection, full ROM, no joint enlargement and no pedal edema DS: Data Data Completed and Pending Labs on day of discharge: Labs from last 24 hours 05/08/23 13:45 Sodium 137 Potassium 3.4 Chloride 104 Carbon Dioxide 25 Anion Gap 8 BUN 17 Creatinine 0.60 L Estim Creat Clear Calc 56 Estimated GFR > 60 Glucose 114 H Calcium 8.9 Phosphorus 3.2 Magnesium 1.7 Preliminary micro results at discharge 05/06/23 22:46 Blood Culture - Preliminary Blood 05/06/23 22:46 Blood Culture - Preliminary Blood Discharge Plan Discharge Att
== END 2023-05-09 15:20 | disposition home health service (06) ==
LOC: ANHED 15:59 → ANH3MEDSUR 05-07 08:16
PROVIDERS: Emergency Medicine; Admitting Provider Internal Medicine; Emergency Provider Emergency Medicine; PCP Family Medicine; Visit Provider Chiropractor
DX: N39.0 Urinary tract infection, site not specified (principal); R53.1 Weakness; W19.XXXA Unspecified fall, initial encounter; R29.6 Repeated falls; F03.90 Unspecified dementia, unspecified severity, without behavioral disturbance, psychotic disturbance, mood disturbance, and anxiety; E03.9 Hypothyroidism, unspecified; I13.0 Hypertensive heart and chronic kidney disease with heart failure and stage 1 through stage 4 chronic kidney disease, or unspecified chronic kidney disease; I50.9 Heart failure, unspecified; N18.30 Chronic kidney disease, stage 3 unspecified; I48.0 Paroxysmal atrial fibrillation; I07.1 Rheumatic tricuspid insufficiency; I35.0 Nonrheumatic aortic (valve) stenosis; F32.A Depression, unspecified; E78.2 Mixed hyperlipidemia; K40.90 Unilateral inguinal hernia, without obstruction or gangrene, not specified as recurrent; E66.9 Obesity, unspecified; M15.9 Polyosteoarthritis, unspecified; R94.31 Abnormal electrocardiogram [ECG] [EKG]; R79.89 Other specified abnormal findings of blood chemistry; Z20.822 Contact with and (suspected) exposure to COVID-19; M40.209 Unspecified kyphosis, site unspecified; R90.82 White matter disease, unspecified; Z68.30 Body mass index [BMI] 30.0-30.9, adult; M47.812 Spondylosis without myelopathy or radiculopathy, cervical region; E55.9 Vitamin D deficiency, unspecified; Z98.84 Bariatric surgery status; Z82.49 Family history of ischemic heart disease and other diseases of the circulatory system; Z86.73 Personal history of transient ischemic attack (TIA), and cerebral infarction without residual deficits; Z79.01 Long term (current) use of anticoagulants; Z79.899 Other long term (current) drug therapy
CPT/HCPCS: 36415; 70450; 71046; 72125; 73090; 73130; 74177; 80048; 80053; 81001; 82550; 83605; 83690; 83735; 83880; 84100; 84484; 85025; 85610; 85730; 87040; 87636; 93005; 96361; 96365; 96366; 96376; 97110; 97161; 97166; 97530; 99285; A9270; G0378; J0696; J7030; Q9967

== ENCOUNTER 2023-11-05 13:18 | Observation (INO) | payer MEDICARE, SELFPAY ==
[2023-11-05] VITALS (34 sets, daily range): BP systolic 123–176; BP diastolic 52–96; PULSE 64–102; RESP 11–24; TEMP 36.3–36.4; O2SAT 78–100; BMI 26.8
--- NOTE | ~2023-11-05 | US_ITS ---
EXAMINATION: US venous doppler LE DATE: 11/05/2023 18:11 INDICATION: Abdominal pain. Shortness of breath. TECHNIQUE: Grayscale ultrasound images without and with compression and Doppler ultrasound images of the bilateral lower extremity veins were obtained. COMPARISON: None. FINDINGS: The visualized portions of right common femoral vein, profunda (deep) femoral vein, femoral vein, pop liteal vein, peroneal veins, posterior tibial veins, and greater saphenous vein outflow are patent. The visualized portions of left common femoral vein, profunda femoral vein, femoral vein, popliteal v ein, peroneal veins, posterior tibial veins, and greater saphenous vein outflow are patent. IMPRESSION: 1. No deep venous thrombosis. Reviewed, dictated and finalized at location E.
--- NOTE | ~2023-11-05 | XR_ITS ---
MODIFIED ESOPHAGRAM HISTORY: Dysphagia. TECHNIQUE: Modified barium esophagram was performed on 11/06/2023. I administered fluoroscopy and perf ormed the exam with speech pathologist. Patient was seated for lateral fluoroscopic imaging for otis stion of thin liquids, pudding, solids and quantified amounts, followed by thin liquids in uncontroll ed amounts. This was recorded on tape. A single fluoroscopic spot image was also recorded. The DAP fo r this procedure was 1.731 Gycm2. The amount of fluoroscopy time used during this procedure was 2.3 m inutes. FINDINGS: Oral stage: Adequate function. Pharyngeal stage: Reduced laryngeal elevation, laryngeal adduction and tongue base retraction. Laryng eal penetration with small amount of thin liquids with additional aspiration with larger swallows of thin liquids. Cervical/esophageal stage: Adequate function. Incidentally noted is some pooling of contrast within t he patulous esophagus. IMPRESSION: 1. Pharyngeal dysphagia with laryngeal penetration and aspiration with thin liquids. Please correlat e with speech pathologist findings and specific feeding recommendations. 2. There are some pooling of contrast in the somewhat patulous esophagus which is not diagnostically evaluated. Could consider further evaluation with either esophagram or endoscopy. Reviewed, dictated and finalized at location A. IMPRESSION: 1. Pharyngeal dysphagia with laryngeal penetration and aspiration with thin liq uids. Please correlate with speech pathologist findings and specific feeding r ecommendations. 2. There are some pooling of contrast in the somewhat patulous esophagus which is not diagnostically evaluated. Could consider further evaluation with either esophagram or endoscopy.
--- NOTE | ~2023-11-05 | CT_ITS ---
EXAMINATION: CT brain wo con DATE: 11/05/2023 15:58 INDICATION: Fall. Altered mental status. Confusion. TECHNIQUE: Computed tomography (CT) of the head was performed without intravenous contrast. The mA wa s adjusted according to patient size. Iterative reconstruction technique was employed. The dose-lengt h product was 681.00 mGy-cm. COMPARISON: Head CT 05/06/2023 FINDINGS: There are scattered areas of low attenuation in the cerebral white matter. There is an old lacunar infarct in the right basal ganglia. There is no intracranial hemorrhage, acute infarction, or abnormal intracranial mass lesion. The ventricles are normal in size. The orbits are normal. There i s mild mucosal thickening in the ethmoid sinuses. There is a small right mastoid effusion. IMPRESSION: 1. Old lacunar infarct in the right basal ganglia. 2. Stable moderate nonspecific cerebral white matter disease, which likely represents chronic small v essel ischemic disease. Reviewed, dictated and finalized at location E. IMPRESSION: 1. Old lacunar infarct in the right basal ganglia. 2. Stable moderate nonspecific cerebral white matter disease, which likely repr esents chronic small vessel ischemic disease.
--- NOTE | ~2023-11-05 | CT_ITS ---
EXAMINATION: CT chest abdomen pelvis w con DATE: 11/05/2023 15:58 INDICATION: Abdominal pain. Shortness of breath. TECHNIQUE: Computed tomography (CT) of the chest, abdomen, and pelvis was performed with 100 mL Omnip aque 350 intravenous contrast. Automated exposure control and iterative reconstruction technique were employed. The dose-length product was 681.00 mGy-cm. COMPARISON: CT abdomen and pelvis 05/06/2023 FINDINGS: CHEST CT: There are mild chronic peripheral reticular opacities in the inferior lungs. There is a 4 mm nodule a t left major fissure, likely benign. No pleural effusion. Cardiomegaly is noted. There are coronary a rtery calcifications. No pericardial effusion. There is thoracic kyphosis and mild spondylosis. ABDOMEN/PELVIS CT: The liver and spleen are normal. The gallbladder is absent. The pancreas, adrenal glands, and left ki dney are normal. There is a 5 mm cyst in right kidney. There are no dilated loops of bowel. The appen gavin is not visualized. There is an infraumbilical ventral hernia containing nonobstructed small bowel . There is calcified atherosclerosis of the aorta and many of the other arteries. There are no pathol ogically enlarged lymph nodes. There is no free intraperitoneal fluid. There is thickening of the end ometrial complex to 9 mm. There is severe lumbar spondylosis. IMPRESSION: 1. Infraumbilical ventral hernia containing nonobstructed small bowel. 2. Thickened endometrial complex. The differential diagnosis includes endometrial hyperplasia, polyp, and carcinoma. Biopsy is recommended. Reviewed, dictated and finalized at location E. IMPRESSION: 1. Infraumbilical ventral hernia containing nonobstructed small bowel. 2. Thickened endometrial complex. The differential diagnosis includes endometri al hyperplasia, polyp, and carcinoma. Biopsy is recommended.
--- NOTE | ~2023-11-05 | US_ITS ---
EXAMINATION: US pelvic complete DATE: 11/07/2023 09:10 INDICATION: Endometrial thickening Comparison:CT dated 11/05/2023 TECHNIQUE: Multiple transabdominal and endovaginal sonographic images of the pelvis performed. FINDINGS: The uterus measures 6.1 x 2.8 x 3.7 cm. The endometrial complex measures 10 mm. There is fl uid in the endometrium. The right ovary measures 2.4 x 2 x 1.3 cm with normal vascular flow. Left ovary not visualized. There is no free fluid in the pelvis. There are no abnormal masses seen on either side. IMPRESSION: 1. Thickened fluid filled endometrium. The differential diagnosis includes endometrial hyperplasia, p olyp and carcinoma. Biopsy is recommended. Reviewed, dictated and finalized at location A. IMPRESSION: 1. Thickened fluid filled endometrium. The differential diagnosis includes endo metrial hyperplasia, polyp and carcinoma. Biopsy is recommended.
--- NOTE | 2023-11-05 13:28 | ECG_ITS ---
SEE SCANNED COPY FOR CONFIRMED REPORT MTDD
[2023-11-05 13:49] LABS: Basophils Percent Auto 0.4 % (0.2-1.2); Eosinophils Absolute Auto 0.1 K/mm3 (0-0.3); Eosinophils Percent Auto 2.6 % (0-4.4); Hematocrit 36.5 % (37.0-47.0); Hemoglobin 12.3 g/dL (12.0-15.0); Immature Granulocyte Absolute 0.02 K/mm3 (0.00-0.031); Immature Granulocyte Percent A 0.4 % (0-0.5); Lymphocytes Absolute Auto 1.38 K/mm3 (0.9-3.2); Lymphocytes Percent Auto 27.9 % (18.3-44.2); Mean Corpuscular HGB Conc 33.7 g/dl (32-36); Mean Corpuscular Hemoglobin 34.3 pg (26-34); Mean Corpuscular Volume 101.7 fl (80-100); Mean Platelet Volume 11.3 fl (7.4-10.4); Monocytes Absolute Auto 0.8 K/mm3 (0.1-0.6); Monocytes Percent Auto 16.4 % (2.6-8.5); Neutrophils Absolute Auto 2.6 K/mm3 (1.3-6.7); Neutrophils Percent Auto 52.3 % (45.5-73.1); Platelet Count Result 161 k/mm3 (150-375); Red Blood Count 3.59 M/mm3 (4.2-5.4); Red Cell Distribution Width 12.6 % (11.5-14.5)
[2023-11-05 13:51] LABS: Appearance Urine Clear (Clear); Bacteria Urine None Seen /hpf; Bilirubin Urine Negative (Negative); Blood Urine Negative (Negative); Color Urine Dark Yellow (Yellow); Glucose Urine UA Trace mg/dL (Negative); Ketones Urine 1+ mg/dL (Negative); Leukocyte Esterase Ur Negative LEU/UL (Negative); Nitrate Urine Negative (Negative); Protein Urine Trace mg/dL (Negative); RBC Urine 0-2 /hpf (0-2); Specific Grav Ur 1.021 (1.001-1.035); Squamous Epithelial Cell Urine None Seen /hpf (Few); WBC Urine 0-5 /hpf (0-3); pH Urine 5.5 (5.0-9.0)
[2023-11-05 13:56] LABS: Alanine Aminotransferase 15 U/L (6-35); Alkaline Phosphatase 70 U/L (38-126); Anion Gap 6 mmol/L (4-12); Aspartate Amino Transferase 24 U/L (14-36); Bilirubin,Total 1.4 mg/dL (0.2-1.3); Blood Urea Nitrogen 32 mg/dL (7-17); Calcium 9.5 mg/dL (8.4-10.2); Carbon Dioxide 27 mmol/L (22-30); Chloride 104 mmol/L (98-107); Estimated Glomerular Filt Rate > 60; Glucose 87 mg/dL (65-110); INR 1.1; Partial Thromboplastin Time 25.4 Seconds (22.3-36.8); Potassium 4.1 mmol/L (3.4-5.0); Prothrombin Time 14.9 Seconds (11.1-14.7); Sodium 137 mmol/L (137-145)
[2023-11-05 14:01] LABS: Add Urine Microscopic? YES
--- NOTE | 2023-11-05 14:39 | ED.AMS ---
HPI - Altered Mental Status General Chief Complaint: Altered Mental Status Stated Complaint: ams Time Seen by Provider: 11/05/23 14:39 Related Data Allergies Allergy/AdvReac Type Severity Reaction Status Date / Time alendronate sodium Allergy Unknown unknown Verified 10/14/23 13:44 [facility] Past Medical History Medical History Abdominal pannus Adult BMI 45.0-49.9 kg/sq m Bilateral knee pain Bilateral primary osteoarthritis of knee Body mass index (BMI) of 30 to 39 in adult Chronic congestive heart failure Chronic renal insufficiency, stage III (moderate) Dementia Depression Encounter for immunization Encounter for screening colonoscopy Essential hypertension Heart murmur Hyperglycemia Hypertension Hypothyroidism Laceration of right thumb Lymphedema Mixed hyperlipidemia Nonrheumatic aortic (valve) stenosis Obesity On warfarin therapy Paroxysmal atrial fibrillation Pulmonary hypertension Thrombocytopenia Tricuspid regurgitation Venous stasis ulcer of right lower extremity Vitamin D deficiency Surgical History Surgical History History of cholecystectomy History of gastric bypass History of gastric stapling Family History Family History Father Diabetes mellitus Hypertension Mother Hypertension Heart disease Cerebrovascular accident Sibling Cancer Other Asthma Hypertension Other Family history of coronary artery disease Social History Social History Smoking status: Never smoker Second hand tobacco smoke exposure: No Alcohol intake: never Substance use: never Substance use type: does not use Lack of Transportation: No Lack of Food: Never True Current Housing: I Have Housing Concerned About Future Housing: No Difficulty Paying Gas/Electric Bills: No Difficulty Paying for Meds: No Currently Unemployed: No Education: Grade School Difficulty w/ Childcare or Family Care: No Living arrangements: with family Gender identity (if verbalized by the patient): Female Spiritual care concerns: No Agree to blood products: Yes Course Vital Signs Vital signs: Vital Signs Temperature 36.3 C L 11/05/23 13:19 Pulse Rate 81 11/05/23 13:19 Respiratory Rate 20 11/05/23 13:19 Blood Pressure 176/91 H 11/05/23 13:19 Pulse Oximetry 100 11/05/23 13:19 Oxygen Delivery Room Air 11/05/23 13:19 Temperature 36.3 C L 11/05/23 13:19 Pulse Rate 81 11/05/23 13:19 Respiratory Rate 20 11/05/23 13:19 Blood Pressure 176/91 H 11/05/23 13:19 Pulse Oximetry 100 11/05/23 13:19 Oxygen Delivery Room Air 11/05/23 14:11 MDM - Altered Mental Status Lab Data 11/05/23 13:39 11/05/23 13:39 Labs: Lab Results 11/05/23 Range/Units 13:39 WBC 5.0 (4.5-10.0) K/mm3 RBC 3.59 L (4.2-5.4) M/mm3 Hgb 12.3 (12.0-15.0) g/dL Hct 36.5 L (37.0-47.0) % MCV 101.7 H (80-100) fl MCH 34.3 H (26-34) pg MCHC 33.7 (32-36) g/dl RDW 12.6 (11.5-14.5) % Plt Count 161 (150-375) k/mm3 MPV 11.3 H (7.4-10.4) fl Immature Gran % (Auto) 0.4 (0-0.5) % Neut % (Auto) 52.3 (45.5-73.1) % Lymph % (Auto) 27.9 (18.3-44.2) % Mccreary % (Auto) 16.4 H (2.6-8.5) % Eos % (Auto) 2.6 (0-4.4) % Baso % (Auto) 0.4 (0.2-1.2) % Lymph # (Auto) 1.38 (0.9-3.2) K/mm3 Mccreary # (Auto) 0.8 H (0.1-0.6) K/mm3 Eos # (Auto) 0.1 (0-0.3) K/mm3 Baso # (Auto) 0.0 (0.0-0.1) K/mm3 Abs Immat Gran (auto) 0.02 (0.00-0.031) K/mm3 Absolute Neuts (auto) 2.6 (1.3-6.7) K/mm3 Absolute Nucleated RBC 0.000 (0.0-0.012) K/mm3 Nucleated RBC % 0.0 (0.0-0.2) % PT 14.9 H (11.1-14.7) Seconds INR 1.1 APTT 25.4 (22.3-36.8) Seconds Sodium 137 (137-145) mmol/L Potassium 4
--- NOTE | 2023-11-05 16:19 | ED.GENADULT ---
HPI - General Adult General Chief complaint: Altered Mental Status Stated complaint: ams Time Seen by Provider: 11/05/23 14:39 History of Present Illness HPI narrative: 83-year-old female presenting to the emergency department evaluation worsening chest pain and shortness of breath. Family reports that the patient had a fall on Thursday. Patient was on the ground for approximately 6 hours prior to the family finding her. On Thursday patient had no complaints and patient was not evaluated at that time. Family states over the course of the last few days patient has been declining. Patient was complaining of increased shortness of breath and chest pain prior to arrival. Patient lives at home on her own and patient is adamant about going back to her home. Family also states they are working to get extra support for the patient so she can stay in her home. Related Data Allergies Allergy/AdvReac Type Severity Reaction Status Date / Time alendronate sodium Allergy Unknown unknown Verified 11/09/23 13:55 Review of Systems Review of Systems: All systems reviewed & are unremarkable except as noted in HPI and below PMFSH Past Medical History Medical History Aortic valve stenosis Bilateral primary osteoarthritis of knee Chronic anticoagulation Chronic kidney disease, stage 3 Dementia Depression Diastolic dysfunction Essential hypertension Hypertension Hypothyroidism Lymphedema Mixed hyperlipidemia Paroxysmal atrial fibrillation Pulmonary hypertension Tricuspid regurgitation Vitamin D deficiency Surgical History Surgical History History of cholecystectomy History of gastric bypass History of gastric stapling Status post panniculectomy Family History Family History Father Diabetes mellitus Hypertension Mother Hypertension Heart disease Cerebrovascular accident Sibling Cancer Other Asthma Hypertension Other Family history of coronary artery disease Social History Social History Social History: Surrogate medical decision maker: Code status: Smoking status: Never smoker Second hand tobacco smoke exposure: Yes Alcohol intake: never Substance use: never Substance use type: does not use Do You Feel Safe in your Home?: Yes Lack of Transportation: No Lack of Food: Never True Current Housing: I Have Housing Concerned About Future Housing: No Difficulty Paying Gas/Electric Bills: No Difficulty Paying for Meds: No Currently Unemployed: No Education: Grade School Difficulty w/ Childcare or Family Care: No Living arrangements: with family Additional living arrangements comments: Lives in her own home but family members are there frequently. . Has 4 children. Spiritual care concerns: No Agree to blood products: Yes Course Vital Signs Vital signs: Vital Signs Temperature 97.3 F L 11/05/23 13:19 Pulse Rate 81 11/05/23 13:19 Respiratory Rate 20 11/05/23 13:19 Blood Pressure 176/91 H 11/05/23 13:19 Pulse Oximetry 100 11/05/23 13:19 Oxygen Delivery Room Air 11/05/23 13:19 Temperature 96.8 F L 11/07/23 14:00 Pulse Rate 68 11/07/23 14:00 Respiratory Rate 16 11/07/23 14:00 Blood Pressure 85/53 L 11/07/23 14:00 Pulse Oximetry 98 11/07/23 14:00 Oxygen Delivery Room Air 11/07/23 10:19 Medical Decision Making MDM Narrative Medical decision making narrative: 83-year-old female present to the emergency department for evaluation of hypertension and increased shortness of breath. Patient was afebrile upon arrival, patient's blood pressures improved. Patient does have an elevated BNP of 2740 and mildly elevated troponin. Patient was negative for influenza RSV and COVID. Marcell
[2023-11-05 16:48] LABS: Creatine Kinase 61 U/L (30-135)
[2023-11-05 16:51] LABS: NT Pro B Type Natriuretic Pept 2740 pg/mL (19.9-100)
[2023-11-05 16:57] LABS: Influenza A QL RT-PCR Negative (Negative); Influenza B QL RT-PCR Negative (Negative); RSV RNA, RT-PCR Negative (Negative); SARS-CoV-2 RNA PCR Negative (Negative)
[2023-11-05 17:01] LABS: Troponin I 0.032 ng/mL (0.000-0.034)
--- NOTE | 2023-11-05 17:57 | PC.NURSE ---
Doppler being performed at bedside. Pt updated on admission status.
[2023-11-05] MEDS: FUROSEMIDE INJ 40 MG/4 ML VIAL IV PUSH ×2 (18:40→20:03)
--- NOTE | 2023-11-05 19:01 | PM.IMHP ---
H&P: HPI History of Present Illness Date/Time: 11/05/23 20:45 Chief Complaint: Increasing confusion and shortness of breath. Narrative: This is a pleasant 83-year-old female with dementia, paroxysmal atrial fibrillation on chronic anticoagulation, diastolic dysfunction, aortic valve stenosis, chronic kidney disease, pulmonary hypertension, lymphedema, and hypothyroidism who presented to the emergency department for evaluation of increasing confusion and shortness of breath. She is alert and oriented x2 but seems to suffer from significant short-term memory loss and she cannot provide an accurate history and some of the following is obtained via a review of her EMR as well as information provided by her children. She lives in her own home however her children live nearby and help her out frequently. She seems to have been getting increasingly weak and she sustained a fall last Thursday at which time she lay on the ground for approximately 6 hours before family members found her and got her up. She was not evaluated at that time and did not seem to be injured however she has complained of some mild back pain although she denies having pain at this time. Children have also noticed that she seems to be short of breath with minimal exertion and they brought her in today for evaluation. There were no reports of fever, recent cold or flu symptoms, vomiting, or diarrhea. The patient herself has no complaints and tells me she feels just fine. She does not however remember how she got to the hospital or why she was brought here. The patient tells me that she has a walker at home that she uses if she needs however she needed 2 person assist to get to the bathroom this evening. In the ED: She was afebrile on arrival. Blood pressures were as high as 176/91 but have improved now that she has settled in her room. She has had a couple of low oxygen saturations which seem to occur when sleeping. Currently her SpO2 was 99% on room air. Labs were significant for a WBC count of 5.0, hemoglobin 12.3, MCV 101.7, BUN 32, proBNP 2740, troponin 0.032. Urine is positive for 1+ ketones. She tested negative for influenza, RSV, and COVID. Brain CT showed old lacunar infarct in the right basal ganglion stable moderate nonspecific cerebral white matter disease. CT of the chest, abdomen, and pelvis showed infraumbilical ventral hernia containing nonobstructive small bowel and thickened endometrial complex (she does not think that she has had any vaginal bleeding). Venous Doppler ultrasounds of the legs were negative for DVT. She was given 1 dose of furosemide IV x1 and is being admitted in this setting for further evaluation and possible rehab placement before being able to return home. Review of Systems Review of Systems: Review of systems was attempted but significantly limited due to her severe short-term memory loss. She stated no or I do not remember to most of the questions asked of her. [facility] Past Medical History Medical History Aortic valve stenosis Bilateral primary osteoarthritis of knee Chronic anticoagulation Chronic kidney disease, stage 3 Dementia Depression Diastolic dysfunction Essential hypertension Hypertension Hypothyroidism Lymphedema Mixed hyperlipidemia Paroxysmal atrial fibrillation Pulmonary hypertension Tricuspid regurgitation Vitamin D deficiency Surgical History Surgical History History of cholecystectomy History of gastric bypass History of gastric stapling Status post panniculectomy Family History Family History Father Diabetes mellitus Hypertension Mother Hypertension Heart disease Cerebrovascular accident Sibling Cancer Other Asthma Hypertension Other Family history of coronary artery disease Social History Social History (Reviewed 11/05/23 @ 20:3
--- NOTE | 2023-11-05 19:39 | ADMGEN ---
This patient, Annabelle Gruber, was admitted to Medical Room 341-01. Patient/family oriented to hospital policies and general routines including ID bracelet, bed and alarms, visiting hours, pain management, procedures, bathroom and other care routines, personal items, smoking policy, room service/diet, and visiting hours. Information on how to activate the Rapid Response Team has been discussed. Patient/Family are encouraged to report perceived risks to care and to ask questions if they do not understand what they are told or what they should do.
[2023-11-05] MEDS: ACETAMINOPHEN 325 MG TABLET 650 MG PO (22:33)
[2023-11-05] MEDS: MELATONIN 5 MG TABLET PO (22:35)
[2023-11-06] VITALS (9 sets, daily range): BP systolic 109–141; BP diastolic 41–64; PULSE 44–96; RESP 14–20; TEMP 36.1–36.9; O2SAT 98–99
--- NOTE | 2023-11-06 | ECHO_ITS ---
Patient Info Name: Annabelle Gruber Age: 83 years : 1940 Gender: Female Ht: 59 in Wt: 144 lbs BSA: 1.67 m2 HR: 96 bpm BP: 141 / 64 mmHg Heart Rhythm: Atrial Fibrillation Technical Quality: Poor Exam Date: 11/06/2023 10:21 AM Exam Location: Echo Lab Patient Status: Inpatient Admit Date: 11/05/2023 Staff Ordering Physician: Vika Nichols PA-C Draughtsman: Mis Nayak RDCS Attending Provider: Rain Anthony MD Referring Physician: Simone HEREDIA; Exam Type: CA echo dop color flow w con Study Info Indications - sob, aortic stenosis, a fib Complete two-dimensional, color flow and Doppler transthoracic echocardiogram is performed with contrast to opacify the left ventricle and to improve the deliniation of the left ventricle endocardial borders. Reason for Poor Study: poor echocardiographic windows Summary 1. Left ventricular chamber dimension is normal. 2. Left ventricular systolic function is normal, estimated at 65-70%. 3. There is mildly increased left ventricular wall thickness. 4. The left ventricular diastolic function is indeterminate. 5. Left atrial chamber dimension is severely enlarged. 6. Right atrial chamber dimension is severely enlarged. 7. There is severe aortic valve stenosis with a peak velocity of 265.99 cm/s, mean gradient of 16 mmHg, and aortic valve area of 0.72 cm2. 8. There is mild aortic valve regurgitation. 9. There is severe aortic valve calcification. 10. There is mild mitral valve regurgitation. 11. The mitral valve annulus is mildly calcified. 12. The mitral valve has thickened leaflets. 13. There is mild tricuspid valve regurgitation. Left Ventricle Left ventricular chamber dimension is normal. Left ventricular systolic function is normal, estimated at 65-70%. There is mildly increased left ventricular wall thickness. The left ventricular diastolic function is indeterminate. Right Ventricle Right ventricular chamber dimension is normal. Right ventricular systolic function is normal. Left Atria Left atrial chamber dimension is severely enlarged. Right Atria Right atrial chamber dimension is severely enlarged. Atrial Septum Intact interatrial septum visualized by color flow imaging. Aortic Valve The aortic valve is probable trileaflet. There is severe aortic valve stenosis with a peak velocity of 265.99 cm/s, mean gradient of 16 mmHg, and aortic valve area of 0.72 cm2. There is mild aortic valve regurgitation. There is severe aortic valve calcification. Pulmonic Valve The pulmonic valve is normal. There is no pulmonic valve stenosis. There is trace pulmonic regurgitation. Mitral Valve The mitral valve has thickened leaflets. There is no mitral valve stenosis. There is mild mitral valve regurgitation. The mitral valve annulus is mildly calcified. Tricuspid Valve The tricuspid valve leaflets are normal. There is no significant tricuspid valve stenosis. There is mild tricuspid valve regurgitation. No pulmonary hypertension, estimated pulmonary arterial systolic pressure is 31 mmHg. Pericardium/Pleural The pericardium appears normal. There is no pericardial effusion. Inferior Vena Cava Normal inferior vena cava with >50% collapse upon inspiration consistent with normal right atrial pressure, 10 mmHg. Aorta The aortic root size at the sinus of Valsalva is normal. Left Ventricular Outflow Tract Name Value Normal
[2023-11-06 06:11] LABS: Basophils Percent Auto 0.5 % (0.2-1.2); Eosinophils Absolute Auto 0.1 K/mm3 (0-0.3); Eosinophils Percent Auto 2.2 % (0-4.4); Hemoglobin 13.9 g/dL (12.0-15.0); Immature Granulocyte Absolute 0.03 K/mm3 (0.00-0.031); Immature Granulocyte Percent A 0.5 % (0-0.5); Lymphocytes Absolute Auto 1.34 K/mm3 (0.9-3.2); Lymphocytes Percent Auto 22.3 % (18.3-44.2); Mean Corpuscular HGB Conc 34.8 g/dl (32-36); Mean Corpuscular Hemoglobin 34.5 pg (26-34); Mean Corpuscular Volume 99.3 fl (80-100); Monocytes Absolute Auto 1.3 K/mm3 (0.1-0.6); Monocytes Percent Auto 21.6 % (2.6-8.5); Neutrophils Absolute Auto 3.2 K/mm3 (1.3-6.7); Neutrophils Percent Auto 52.9 % (45.5-73.1); Platelet Count Result 191 k/mm3 (150-375); Red Blood Count 4.03 M/mm3 (4.2-5.4); Red Cell Distribution Width 12.4 % (11.5-14.5)
[2023-11-06 06:33] LABS: Alanine Aminotransferase 15 U/L (6-35); Albumin Level 4.3 g/dL (3.5-5.1); Alkaline Phosphatase 78 U/L (38-126); Anion Gap 9 mmol/L (4-12); Aspartate Amino Transferase 30 U/L (14-36); Bilirubin,Total 1.5 mg/dL (0.2-1.3); Blood Urea Nitrogen 27 mg/dL (7-17); Carbon Dioxide 32 mmol/L (22-30); Chloride 98 mmol/L (98-107); Estimated CRCL calculation 32 ml/min; Estimated Glomerular Filt Rate 53; Glucose 111 mg/dL (65-110); Magnesium 1.8 mg/dL (1.6-2.3); Sodium 139 mmol/L (137-145)
[2023-11-06 06:37] LABS: Digoxin 0.6 ng/mL (0.8-2.0)
[2023-11-06 08:16] LABS: Folic Acid 5.8 ng/mL (2.76->20)
[2023-11-06] MEDS: ACETAMINOPHEN 325 MG TABLET 650 MG PO (08:40)
--- NOTE | 2023-11-06 08:52 | PM.IMPN ---
Progress Note: A&P Assessment and Plan (1) Generalized weakness: Code(s): R53.1 - Weakness Status: Acute Assessment and Plan: Fall this past week at home PT/OT consulted and rec's appreciated fall precautions Doppler BLE r/o DVT given weakness and swelling (2) Shortness of breath: Code(s): R06.02 - Shortness of breath Status: Acute Assessment and Plan: orthopnea with increased lower extremity edema history of aortic stenosis and pulmonary HTN BNP 2740 ECHO ordered Received IV lasix x 2 Restarting home medications including oral lasix (3) Thickened endometrium: Code(s): R93.89 - Abnormal findings on diagnostic imaging of other specified body structures Status: Acute Assessment and Plan: Endometrial thickening seen on CT scan I discussed findings with the patient's daughters and they would like to pursue work up with biopsy. I did tell them that it is unlikely the biopsy will occur while she is inpatient. However, she does not have a SPINNING DOFFER that she follows with so I will consult SPINNING DOFFER to establish care for follow up. (4) Dementia: Qualifiers: Dementia behavioral or psychological symptom: unspecified whether behavioral, psychotic, or mood disturbance or anxiety Dementia severity: unspecified severity Dementia type: unspecified type Qualified Code(s): F03.90 - Unspecified dementia, unspecified severity, without behavioral disturbance, psychotic disturbance, mood disturbance, and anxiety Code(s): F03.90 - Unspecified dementia, unspecified severity, without behavioral disturbance, psychotic disturbance, mood disturbance, and anxiety Status: Acute Assessment and Plan: Old lacunar infarct in right basal ganglia stable cerebral white matter disease, likely chronic small vessel ischemia On Donepezil (5) Diastolic dysfunction: Code(s): I51.89 - Other ill-defined heart diseases Status: Acute Assessment and Plan: On losartan, metoprolol, lasix, digoxin Digoxin level is 0.6 ng/ml. No dose adjustment necessary. ECHO pending (6) Aortic valve stenosis: Code(s): I35.0 - Nonrheumatic aortic (valve) stenosis Status: Acute Assessment and Plan: see above (7) Paroxysmal atrial fibrillation: Code(s): I48.0 - Paroxysmal atrial fibrillation Status: Acute Assessment and Plan: On Xarelto and metoprolol the family was giving metoprolol tartrate 200 mg in the morning so the patient did not need to take the medication twice. Will change to metoprolol succinate 200 mg Subjective Date/time seen: 11/06/23 08:52 Interval history: This is a pleasant 83-year-old female with dementia, paroxysmal atrial fibrillation on chronic anticoagulation, diastolic dysfunction, aortic valve stenosis, chronic kidney disease, pulmonary hypertension, lymphedema, and hypothyroidism who presented to the emergency department for evaluation of increasing confusion and shortness of breath. 11/05: Patient is seen sitting on the edge of the bed eating her lunch. Her daughters and [id number] are at the bedside. The patient reports that she has much improvement in her work of breathing. She also denies chest pain. The daughter reports that the patient appears to be better today in terms of her breathing. ECHO has been completed. PT/OT will consult today for recommendations given recent falls. Anticipate discharge tomorrow should she continue to improve. Review of Systems Review of Systems: ROS unobtainable: Yes unobtainable due to mental status Exam Narrative: General: well appearing, appears stated age. HEENT: normocephalic, atraumatic. Mucous membranes moist. EOMI, PERRLA, bilateral sclera anicteric, no conjunctival injection. Neck supple without JVD, lymphadenopathy, or bruit. Respiratory: clear to auscultation bilaterally. No rales/rhonic/wheezes. Cardiovascular: Regular rate and rhythm, n
--- NOTE | 2023-11-06 09:45 | PCSTNOTE ---
Please refer to the Modified Barium Swallow Evaluation in the EMR.
[2023-11-06] MEDS: FUROSEMIDE 20 MG TABLET PO (10:02)
[2023-11-06] MEDS: LEVOTHYROXINE SODIUM 88 MCG TABLET PO (10:02)
[2023-11-06] MEDS: PERFLUTREN LIPID MICROSPHERES 1.5 ML VIAL DILUTED TO 10 ML TOTAL VOLUME IV PUSH (11:30)
--- NOTE | 2023-11-06 11:42 | IVDEFINITY ---
Prior to administration of IV Definity the patient was educated on the risks and benefits of the imaging enhancing agent including potential adverse side effects. The patient verbalized understanding. Allergies were verified. No exclusion criteria were identified and at least one of the following inclusion criteria were met: 1) physician request, 2) patient technically difficult to image (per the [place] [employer] guidelines of two or more segments not discernable within the apical view), or 3) questionable left ventricular function. ?
[2023-11-06] MEDS: POTASSIUM CHLORIDE 20 MEQ ER TABLET 40 MEQ PO (14:15)
[2023-11-06] MEDS: METOPROLOL SUCCINATE EXT REL 100 MG TABCR 200 MG PO (14:16)
[2023-11-06] MEDS: RIVAROXABAN 15 MG TABLET PO (17:16)
[2023-11-06] MEDS: DONEPEZIL HCL 10 MG TABLET PO (21:35)
[2023-11-06] MEDS: MELATONIN 5 MG TABLET PO (21:35)
[2023-11-07] VITALS: PULSE 52
[2023-11-07 03:08] VITALS: PULSE 53
[2023-11-07 06:00] VITALS: BP 118/52; PULSE 57; RESP 21; TEMP 36.2; O2SAT 100
[2023-11-07] MEDS: LEVOTHYROXINE SODIUM 88 MCG TABLET PO (06:39)
[2023-11-07] MEDS: ACETAMINOPHEN 325 MG TABLET 650 MG PO ×2 (06:41→12:30)
[2023-11-07 08:49] VITALS: PULSE 59
[2023-11-07] MEDS: DIGOXIN TAB 125 MCG TABLET PO (08:49)
[2023-11-07] MEDS: METOPROLOL SUCCINATE EXT REL 100 MG TABCR 200 MG PO (08:49)
[2023-11-07] MEDS: FUROSEMIDE 20 MG TABLET PO (08:49)
[2023-11-07] MEDS: LOSARTAN POTASSIUM 100 MG TABLET PO (08:49)
[2023-11-07 08:50] VITALS: PULSE 59
[2023-11-07 09:42] LABS: Hematocrit 39.6 % (37.0-47.0); Hemoglobin 13.1 g/dL (12.0-15.0); Mean Corpuscular HGB Conc 33.1 g/dl (32-36); Mean Corpuscular Hemoglobin 33.7 pg (26-34); Mean Corpuscular Volume 101.8 fl (80-100); Mean Platelet Volume 10.7 fl (7.4-10.4); Platelet Count Result 188 k/mm3 (150-375); Red Blood Count 3.89 M/mm3 (4.2-5.4); Red Cell Distribution Width 12.7 % (11.5-14.5); White Blood Count 5.8 K/mm3 (4.5-10.0)
[2023-11-07 09:55] LABS: Magnesium 1.8 mg/dL (1.6-2.3)
[2023-11-07 09:57] LABS: Alanine Aminotransferase 14 U/L (6-35); Albumin Level 3.7 g/dL (3.5-5.1); Alkaline Phosphatase 60 U/L (38-126); Anion Gap 7 mmol/L (4-12); Aspartate Amino Transferase 28 U/L (14-36); Bilirubin,Total 1.3 mg/dL (0.2-1.3); Blood Urea Nitrogen 25 mg/dL (7-17); Calcium 9.6 mg/dL (8.4-10.2); Carbon Dioxide 33 mmol/L (22-30); Chloride 98 mmol/L (98-107); Estimated CRCL calculation 29 ml/min; Estimated Glomerular Filt Rate 48; Glucose 107 mg/dL (65-110); Potassium 3.3 mmol/L (3.4-5.0); Sodium 138 mmol/L (137-145)
[2023-11-07] MEDS: POTASSIUM CHLORIDE 20 MEQ ER TABLET 40 MEQ PO (12:29)
[2023-11-07] MEDS: LIDOCAINE 5% PATCH 1 PATCH TRANSDERM (12:32)
[2023-11-07 14:00] VITALS: BP 85/53; PULSE 68; RESP 16; TEMP 36; O2SAT 98
[2023-11-07 14:14] LABS: Cholesterol 132 mg/dL (0-200); HDL Direct 33 mg/dL; Triglycerides 94 mg/dL (<150)
[2023-11-07 14:25] LABS: LDL Cholesterol Direct 88 mg/dL
--- NOTE | 2023-11-07 14:55 | PM.DS ---
DS: Admitting Diagnosis Discharge Date 11/06 Admitting Diagnosis fall DS: Discharge Diagnosis Discharge Diagnosis (1) Generalized weakness: Code(s): R53.1 - Weakness Status: Acute Assessment and Plan: Fall this past week at home PT/OT consulted and rec's appreciated fall precautions Doppler BLE r/o DVT given weakness and swelling (2) Shortness of breath: Code(s): R06.02 - Shortness of breath Status: Acute Assessment and Plan: orthopnea with increased lower extremity edema history of aortic stenosis and pulmonary HTN BNP 2740 ECHO ordered Received IV lasix x 2 Restarting home medications including oral lasix (3) Thickened endometrium: Code(s): R93.89 - Abnormal findings on diagnostic imaging of other specified body structures Status: Acute Assessment and Plan: Endometrial thickening seen on CT scan I discussed findings with the patient's daughters and they would like to pursue work up with biopsy. I did tell them that it is unlikely the biopsy will occur while she is inpatient. However, she does not have a DATABASE ADMINISTRATION MANAGER that she follows with so I will consult DATABASE ADMINISTRATION MANAGER to establish care for follow up. (4) Dementia: Qualifiers: Dementia type: unspecified type Dementia severity: unspecified severity Dementia behavioral or psychological symptom: unspecified whether behavioral, psychotic, or mood disturbance or anxiety Qualified Code(s): F03.90 - Unspecified dementia, unspecified severity, without behavioral disturbance, psychotic disturbance, mood disturbance, and anxiety Code(s): F03.90 - Unspecified dementia, unspecified severity, without behavioral disturbance, psychotic disturbance, mood disturbance, and anxiety Status: Acute Assessment and Plan: Old lacunar infarct in right basal ganglia stable cerebral white matter disease, likely chronic small vessel ischemia On Donepezil (5) Diastolic dysfunction: Code(s): I51.89 - Other ill-defined heart diseases Status: Acute Assessment and Plan: On losartan, metoprolol, lasix, digoxin Digoxin level is 0.6 ng/ml. No dose adjustment necessary. ECHO pending (6) Aortic valve stenosis: Code(s): I35.0 - Nonrheumatic aortic (valve) stenosis Status: Acute Assessment and Plan: see above (7) Paroxysmal atrial fibrillation: Code(s): I48.0 - Paroxysmal atrial fibrillation Status: Acute Assessment and Plan: On Xarelto and metoprolol the family was giving metoprolol tartrate 200 mg in the morning so the patient did not need to take the medication twice. Will change to metoprolol succinate 200 mg DS: Summary Hospital Course Reason for hospitalization: chf exacerbation Hospital Course: This is a pleasant 83-year-old female with dementia, paroxysmal atrial fibrillation on chronic anticoagulation, diastolic dysfunction, aortic valve stenosis, chronic kidney disease, pulmonary hypertension, lymphedema, and hypothyroidism who presented to the emergency department for evaluation of increasing confusion and shortness of breath. 11/05: Patient is seen sitting on the edge of the bed eating her lunch. Her daughters and [id number] are at the bedside. The patient reports that she has much improvement in her work of breathing. She also denies chest pain. The daughter reports that the patient appears to be better today in terms of her breathing. ECHO has been completed. PT/OT will consult today for recommendations given recent falls. Anticipate discharge tomorrow should she continue to improve. 11/06: Doing well today. Sitting up in the chair. Her shortness of breath is completely resolved. Her lower extremity edema has improved since admission. Per her family her mentation is back to baseline. The patient and her family are ready to discharge home. Labs and vitals have been reviewed. PT/OT are recommending SNF but the family adamantly refuses
== END 2023-11-07 15:55 | disposition home health service (06) ==
LOC: ANHED 15:52 → ANH3MED 21:52
PROVIDERS: Emergency Medicine; Nurse Practitioner Acute Care; Physician Assistant; Admitting Provider Hospitalist; Emergency Provider Emergency Medicine; PCP Family Medicine; Visit Provider Internal Medicine
DX: R53.1 Weakness (principal); R06.02 Shortness of breath; R93.89 Abnormal findings on diagnostic imaging of other specified body structures; I13.0 Hypertensive heart and chronic kidney disease with heart failure and stage 1 through stage 4 chronic kidney disease, or unspecified chronic kidney disease; I50.9 Heart failure, unspecified; N18.30 Chronic kidney disease, stage 3 unspecified; I08.3 Combined rheumatic disorders of mitral, aortic and tricuspid valves; E78.2 Mixed hyperlipidemia; E03.9 Hypothyroidism, unspecified; I48.0 Paroxysmal atrial fibrillation; E55.9 Vitamin D deficiency, unspecified; F03.90 Unspecified dementia, unspecified severity, without behavioral disturbance, psychotic disturbance, mood disturbance, and anxiety; I27.20 Pulmonary hypertension, unspecified; Z98.84 Bariatric surgery status; Z79.01 Long term (current) use of anticoagulants; Z20.822 Contact with and (suspected) exposure to COVID-19
CPT/HCPCS: 36415; 70450; 71260; 74177; 76856; 80053; 80061; 80162; 81001; 82550; 82607; 82746; 83735; 83880; 84443; 84484; 85025; 85027; 85610; 85730; 87637; 92611; 93005; 93970; 96374; 96375; 96376; 97161; 97165; 97535; 99285; A9270; C8929; G0378; J1940; Q9957; Q9967